=== PATIENT | male | born 1970 | race Two or more races ===

== ENCOUNTER 2023-02-06 10:17 | Emergency (ER) | payer OTHER ==
[~2023-02-06] VITALS: Ht 170.2 cm; Wt 90.7 kg
[2023-02-06] MEDS ORDERED: ATOR20TA PO (10:38)
[2023-02-06] MEDS ORDERED: ASPI81TA31 PO (10:38)
[2023-02-06] MEDS ORDERED: METF-440 PO (10:38)
[2023-02-06] MEDS ORDERED: LORA0.5T48 PO (12:03)
[2023-02-06] MEDS ORDERED: FLAS1KIT2 TP (12:03)
[2023-02-06] MEDS ORDERED: FLAS1EAC2 TP (12:03)
[2023-02-06 12:52] LABS: BASOPHILS % (AUTO) 0.3 % (0.0-2.0); EOSINOPHILS % (AUTO) 0.3 % (0.0-7.0); HEMATOCRIT 44.6 % (36.7-47.1); HEMOGLOBIN 15.5 g/dL (12.5-16.3); LYMPHOCYTES # (AUTO) 1.7 K/uL (0.8-4.8); LYMPHOCYTES % (AUTO) 19.9 % (20.5-51.5); MEAN CORPUSCULAR HEMOGLOBIN 31.5 uug (23.8-33.4); MEAN CORPUSCULAR HGB CONC 35 g/dL (32.5-36.3); MEAN CORPUSCULAR VOLUME 90.3 fL (73.0-96.2); MONOCYTES # (AUTO) 0.4 K/uL (0.1-1.30); MONOCYTES % (AUTO) 4.4 % (0.0-11.0); NEUTROPHILS # (AUTO) 6.4 K/uL (1.8-8.9); NEUTROPHILS % (AUTO) 75.1 % (38.5-71.5); PLATELET COUNT (AUTO) 210 K/uL (152-348); RED BLOOD CELL COUNT(AUTO) 4.94 MIL/uL (4.06-5.63); RED CELL DISTRIBUTION WIDTH 13.2 % (12.1-16.2); WHITE BLOOD COUNT (AUTO) 8.5 K/uL (3.6-10.2)
[2023-02-06 13:00] LABS: CALCIUM 8.5 mg/dL (8.5-10.1); CREATININE 0.9 mg/dL (0.6-1.3); POTASSIUM 4.2 mmol/L (3.5-5.1)
[2023-02-06 13:24] VITALS: BP 127/77; O2SAT 98
[2023-02-06 13:31] LABS: MAGNESIUM 2.2 mg/dL (1.8-2.4)
== END 2023-02-06 13:25 | disposition home or self-care (01) ==
LOC: ER 10:17
DX: F41.9 Anxiety disorder, unspecified (principal); E11.9 Type 2 diabetes mellitus without complications; Z79.899 Other long term (current) drug therapy; Z88.1 Allergy status to other antibiotic agents
CPT/HCPCS: 36415; 83735; 85025; 93005; A4606; A4663